=== PATIENT | female | born 1950 | race Caucasian/White ===

== ENCOUNTER 2019-02-09 08:57 | Day surgery (SDC) | payer MEDICARE, OTHER ==
[~2019-02-09] VITALS: Ht 172.7 cm; Wt 106.6 kg
[~2019-02-09 08:57] MED LIST: ACET65TA; COUM1TAB17; COUM1TAB18; COUM1TAB18 PO; COUM2.5T17 PO; LISI-538 PO; LISI-542 PO; NS 1,000 ML IV ONE; OXYC30TA4 PO; PERC5TAB12 PO; PERC5TAB8; PRIN20TA3; TYLE650T25 PO
[2019-02-09] MEDS ORDERED: LIDOCAINE 2% INJ 100 MG/5 ML SDV (FOR ANES.) As Ordered ONE (09:37)
[2019-02-09] MEDS ORDERED: PROPOFOL 200 MG/20 ML VIAL As Ordered ONE ×2 (10:21→10:47)
--- NOTE | 2019-02-09 11:17 | ROOR ---
Patient Name: Claire Mooney Procedure Date: 02/09/2019 10:32 AM Date of : 1950 Age: 68 Room: [facility] Gender: Female Note Status: Finalized Procedure: Colonoscopy Indications: Screening for colorectal malignant neoplasm Providers: Neil Everett Jr, MD Referring MD: Milli Mata DO Requesting Provider: Medicines: Propofol per Anesthesia Complications: No immediate complications. Procedure: Pre-Anesthesia Assessment: - Prior to the procedure, a History and Physical was performed, and patient medications and allergies were reviewed. The patient is competent. The risks and benefits of the procedure and the sedation options and risks were discussed with the patient. All questions were answered and informed consent was obtained. Patient identification and proposed procedure were verified by the physician and the nurse in the pre-procedure area and in the procedure room. Mental Status Examination: alert and oriented. Airway Examination: normal oropharyngeal airway and neck mobility. Respiratory Examination: clear to auscultation. CV Examination: normal. ASA Grade Assessment: II - A patient with mild systemic disease. After reviewing the risks and benefits, the patient was deemed in satisfactory condition to undergo the procedure. The anesthesia plan was to use moderate sedation / analgesia (conscious sedation). Immediately prior to administration of medications, the patient was re-assessed for adequacy to receive sedatives. The heart rate, respiratory rate, oxygen saturations, blood pressure, adequacy of pulmonary ventilation, and response to care were monitored throughout the procedure. The physical status of the patient was re-assessed after the procedure. The Colonoscope was introduced through the anus and advanced to the cecum, identified by appendiceal orifice and ileocecal valve. The colonoscopy was performed with moderate difficulty due to restricted mobility of the colon. Successful completion of the procedure was aided by changing the patient's position. Findings: The rectum, ascending colon, cecum, appendiceal orifice and ileocecal valve appeared normal. A few small and large-mouthed diverticula were found in the descending colon, transverse colon and ascending colon. Many small and large-mouthed diverticula were found in the sigmoid colon. Impression: - The rectum, ascending colon, cecum, appendiceal orifice and ileocecal valve are normal. - Diverticulosis in the descending colon, in the transverse colon and in the ascending colon. - Diverticulosis in the sigmoid colon. - No specimens collected. Recommendation: - Discharge patient to home (ambulatory). - Repeat colonoscopy in 10 years for screening purposes. Neil Everett MD Neil Everett Jr, MD 02/09/2019 11:16:52 AM Electronically signed by Neil Everett Jr, MD Number of Addenda: 0 Note Initiated On: 02/09/2019 10:32 AM Estimated Blood Loss: Estimated blood loss: none.
[2019-02-09 11:31] VITALS: BP 162/69
== END 2019-02-09 11:32 | disposition home or self-care (01) ==
LOC: M OPP 08:57
PROVIDERS: ATTEND Surgery
DX: Z12.11 Encounter for screening for malignant neoplasm of colon (principal); Z80.0 Family history of malignant neoplasm of digestive organs; K57.30 Diverticulosis of large intestine without perforation or abscess without bleeding; I10 Essential (primary) hypertension; M19.90 Unspecified osteoarthritis, unspecified site; Z91.09 Other allergy status, other than to drugs and biological substances; Z79.899 Other long term (current) drug therapy

== ENCOUNTER → 2019-12-19 | Outpatient (CLI) | payer MEDICARE ==
[~2019-12-19] MED LIST changes: -NS 1,000 ML IV ONE
--- NOTE | 2019-12-19 16:31 | REP ---
REASON FOR EXAM: Right knee arthroplasty, assess for loosening. Patient has bilateral knee arthroplasty. After the intravenous administration of 22.0 mCi of technetium 99m MDP, a triple phase bone scan of the knees was obtained. The flow portion of the examination shows no abnormal increased or decreased radionuclide accumulation seen in either knee region. Blood pool imaging shows slight increased activity in the tibial shaft component of the right knee prosthesis compared to the left. Delayed imaging shows slightly increased radionuclide accumulation in the tibial shaft component of the arthroplasty on the right compared to the left. The degree of increased activity between the blood pool and delayed imaging is minimal. IMPRESSION: There is only a slight increase in tibial shaft component of the right knee arthroplasty and seen only in blood pool and delayed imaging without abnormal increased radionuclide accumulation seen in the right knee on the blood flow portion of the examination. This is not the classic finding for significant loosening. Certainly, early tibial shaft component prosthetic loosening cannot be completely ruled out. Consider followup examination if clinically warranted. Electronically Signed by Omid Tran DO 12/19/2019 05:32 P
== END ==
LOC: M RAD 08:13
PROVIDERS: ATTEND Orthopaedic Surgery
DX: M25.561 Pain in right knee (principal); Z96.653 Presence of artificial knee joint, bilateral
CPT/HCPCS: 78315; A9503

== ENCOUNTER → 2020-05-27 | Outpatient (CLI) | payer MEDICARE ==
--- NOTE | 2020-05-28 13:49 | REP ---
INDICATION: THYROTOXICOSIS W/ DIFFUSE GOITER COMPARISON: None. TECHNIQUE/RADIOTRACER AND DOSE: 360.0 uCi of Iodine-123 sodium iodide is ingested and functional thyroid images and thyroid uptake values are acquired. FINDINGS: Twenty-four are thyroid uptake value is elevated at 70.1%. (25-35%). Functional images demonstrate homogeneous uptake in thyroid lobes bilaterally. No cold or warm lesion is seen. The gland does not appear to be enlarged. IMPRESSION: Homogeneous function, increased uptake. Findings compatible with Graves disease. <Electronically signed by Santiago De Dios > 05/28/20 [id number]
== END ==
LOC: M RAD 13:21
PROVIDERS: ATTEND Internal Medicine Endocrinology, Diabetes & Metabolism
DX: E05.00 Thyrotoxicosis with diffuse goiter without thyrotoxic crisis or storm (principal)
CPT/HCPCS: 78012; A9516

== ENCOUNTER → 2020-07-05 | Outpatient (CLI) | payer MEDICARE ==
[~2020-07-05] MED LIST changes: -LISI-538 PO; -LISI-542 PO; +LISI-898 PO; +LISI20TA33 PO
== END ==
LOC: M RAD 13:24
PROVIDERS: ATTEND Internal Medicine Endocrinology, Diabetes & Metabolism
DX: E05.00 Thyrotoxicosis with diffuse goiter without thyrotoxic crisis or storm (principal)
CPT/HCPCS: 79005; A9517

== ENCOUNTER 2020-11-07 12:11 | Outpatient (CLI) | payer MEDICARE ==
[~2020-11-07] VITALS: Ht 172.7 cm; Wt 84.8 kg
[2020-11-07] MEDS ORDERED: NS IV ONE (12:30)
[2020-11-07] MEDS ORDERED: methylPREDNISolone 125MG 2ML VIAL IV PRN (12:30)
[2020-11-07] MEDS ORDERED: TEPROTUMUMAB TRBW IV ONE (12:30)
[2020-11-07 12:50] VITALS: BP 139/67
[2020-11-07 14:46] VITALS: BP 120/59
[2020-11-07 15:00] VITALS: BP 124/61
== END 2020-11-07 15:00 | disposition home or self-care (01) ==
LOC: M INFU 12:11
PROVIDERS: ATTEND Ophthalmology
DX: H05.242 Constant exophthalmos, left eye (principal)
CPT/HCPCS: 96365; J3241

== ENCOUNTER 2020-11-28 12:20 | Outpatient (CLI) | payer MEDICARE ==
[2020-11-28] MEDS ORDERED: methylPREDNISolone 125MG 2ML VIAL IV PRN (12:30)
[2020-11-28] MEDS ORDERED: NS IV ONE ×2 (12:30)
[2020-11-28] MEDS ORDERED: TEPROTUMUMAB TRBW IV ONE ×2 (12:30)
[2020-11-28 12:35] VITALS: BP 140/73
[2020-11-28 13:37] VITALS: BP 140/73
[2020-11-28] MEDS ORDERED: LEVO150T7 (14:04)
[2020-11-28 15:10] VITALS: BP 128/58
== END 2020-11-28 15:30 | disposition home or self-care (01) ==
LOC: M INFU 12:20
PROVIDERS: ATTEND Ophthalmology
DX: E05.00 Thyrotoxicosis with diffuse goiter without thyrotoxic crisis or storm (principal)
CPT/HCPCS: 96365; 96366; J3241

== ENCOUNTER 2020-12-19 12:23 | Outpatient (CLI) | payer MEDICARE ==
[~2020-12-19] VITALS: Ht 172.7 cm; Wt 83.9 kg
[~2020-12-19 12:23] MED LIST changes: +LEVO150T7
[2020-12-19 12:25] VITALS: BP 128/67
[2020-12-19] MEDS ORDERED: NS IV ONE (12:30)
[2020-12-19] MEDS ORDERED: methylPREDNISolone 250 MG in D5W 100 ML IV PRN (12:30)
[2020-12-19] MEDS ORDERED: TEPROTUMUMAB TRBW IV ONE (12:30)
== END 2020-12-19 14:45 | disposition home or self-care (01) ==
LOC: M INFU 12:23
PROVIDERS: ATTEND Ophthalmology
DX: H05.242 Constant exophthalmos, left eye (principal)
CPT/HCPCS: 96365; J3241

== ENCOUNTER 2021-01-09 12:36 | Outpatient (CLI) | payer MEDICARE ==
[~2021-01-09] VITALS: Ht 172.7 cm; Wt 84.0 kg
[~2021-01-09 12:36] MED LIST changes: +NS IV ONE; +TEPROTUMUMAB TRBW IV ONE; +methylPREDNISolone 250 MG in D5W 100 ML IV PRN
[2021-01-09 12:55] VITALS: BP 132/70
[2021-01-09 13:15] VITALS: BP 132/70
[2021-01-09 14:55] VITALS: BP 141/66
== END 2021-01-09 15:15 | disposition home or self-care (01) ==
LOC: M INFU 12:36
PROVIDERS: ATTEND Ophthalmology
DX: H05.242 Constant exophthalmos, left eye (principal); Z91.048 Other nonmedicinal substance allergy status
CPT/HCPCS: 96365; J3241

== ENCOUNTER 2021-01-30 12:07 | Outpatient (CLI) | payer MEDICARE ==
[~2021-01-30] VITALS: Ht 172.7 cm; Wt 84.0 kg
[~2021-01-30 12:07] MED LIST changes: -NS IV ONE; -TEPROTUMUMAB TRBW IV ONE; -methylPREDNISolone 250 MG in D5W 100 ML IV PRN
[2021-01-30 12:20] VITALS: BP 164/94
[2021-01-30] MEDS ORDERED: TEPROTUMUMAB TRBW IV ONE (12:30)
[2021-01-30] MEDS ORDERED: NS IV ONE (12:30)
[2021-01-30 15:05] VITALS: BP 134/62
== END 2021-01-30 15:05 | disposition home or self-care (01) ==
LOC: M INFU 12:07
PROVIDERS: ATTEND Ophthalmology
DX: H05.242 Constant exophthalmos, left eye (principal); Z91.048 Other nonmedicinal substance allergy status
CPT/HCPCS: 96365; J3241

== ENCOUNTER 2021-02-27 12:07 | Outpatient (CLI) | payer MEDICARE ==
[~2021-02-27] VITALS: Ht 172.7 cm; Wt 83.9 kg
[~2021-02-27 12:07] MED LIST changes: +NS IV ONE; +TEPROTUMUMAB TRBW IV ONE; +methylPREDNISolone 250 MG in D5W 100 ML IV PRN
[2021-02-27 12:15] VITALS: BP 167/71
[2021-02-27] MEDS ORDERED: NS IV ONE (12:30)
[2021-02-27] MEDS ORDERED: TEPROTUMUMAB TRBW IV ONE (12:30)
[2021-02-27 15:16] VITALS: BP 168/80
== END 2021-02-27 15:10 | disposition home or self-care (01) ==
LOC: M INFU 12:07
PROVIDERS: ATTEND Ophthalmology
DX: H05.242 Constant exophthalmos, left eye (principal); Z91.048 Other nonmedicinal substance allergy status
CPT/HCPCS: 96365; J3241

== ENCOUNTER 2021-03-20 11:38 | Outpatient (CLI) | payer MEDICARE ==
[~2021-03-20] VITALS: Ht 172.7 cm; Wt 83.9 kg
[2021-03-20 11:40] VITALS: BP 130/62
[2021-03-20 14:00] VITALS: BP 130/62
[2021-03-20 14:15] VITALS: BP 140/64
== END 2021-03-20 14:15 | disposition home or self-care (01) ==
LOC: M INFU 11:38
PROVIDERS: ATTEND Ophthalmology
DX: H05.242 Constant exophthalmos, left eye (principal)
CPT/HCPCS: 96365; J3241

== ENCOUNTER 2021-04-10 11:30 | Outpatient (CLI) | payer MEDICARE ==
[~2021-04-10] VITALS: Ht 172.7 cm; Wt 84.0 kg
[~2021-04-10 11:30] MED LIST changes: -NS IV ONE; -TEPROTUMUMAB TRBW IV ONE
[2021-04-10 11:45] VITALS: BP 134/60
[2021-04-10] MEDS ORDERED: TEPROTUMUMAB TRBW IV ONE (12:00)
[2021-04-10] MEDS ORDERED: NS IV ONE (12:00)
[2021-04-10 14:20] VITALS: BP 123/58
== END 2021-04-10 14:20 | disposition home or self-care (01) ==
LOC: M INFU 11:30
PROVIDERS: ATTEND Ophthalmology
DX: H05.242 Constant exophthalmos, left eye (principal); Z91.048 Other nonmedicinal substance allergy status
CPT/HCPCS: 96365; J3241

== ENCOUNTER 2022-07-14 19:28 | Emergency (ER) | payer MEDICARE ==
[~2022-07-14] VITALS: Ht 170.2 cm; Wt 103.4 kg
[~2022-07-14 19:28] MED LIST changes: -LISI-898 PO; +LISI5TAB11 PO; -methylPREDNISolone 250 MG in D5W 100 ML IV PRN
[2022-07-14 19:31] VITALS: BP 168/90
== END 2022-07-15 00:10 | disposition left against medical advice (07) ==
LOC: M ED 19:28
DX: Z53.21 Procedure and treatment not carried out due to patient leaving prior to being seen by health care provider (principal)

== ENCOUNTER → 2023-04-08 | Outpatient (CLI) | payer MEDICARE | LOC: M CARPUL 13:39 | PROVIDERS: ATTEND Family Medicine | DX: R07.89 Other chest pain (principal); R00.2 Palpitations; I08.3 Combined rheumatic disorders of mitral, aortic and tricuspid valves ==

== ENCOUNTER → 2023-11-30 | Outpatient (CLI) | payer MEDICARE | LOC: M RAD 09:50 | PROVIDERS: ATTEND Orthopaedic Surgery | DX: Z96.653 Presence of artificial knee joint, bilateral (principal); M25.561 Pain in right knee | CPT/HCPCS: 78315; A9503 ==